=== PATIENT | male | born 1970 | race Caucasian/White ===

== ENCOUNTER 2016-07-27 05:38 | Day surgery (SDC) | payer OTHER ==
[2016-07-27] VITALS (8 sets, daily range): BP systolic 117–127; BP diastolic 69–77; PULSE 66–82; RESP 9–18; O2SAT 94–97
[~2016-07-27] VITALS: Ht 185.4 cm; Wt 108.8 kg
[~2016-07-27 05:38] MED LIST: FLUT16SP NS; LORA10CA PO; RANI150T11 PO
[2016-07-27] MEDS ORDERED: fentaNYL-PF 50 mCg/mL 2 mL Inj ONE (05:39)
[2016-07-27] MEDS ORDERED: MetoCLOpramide 5 mg/mL 2 mL Inj ONE (05:39)
[2016-07-27] MEDS ORDERED: Ondansetron 2 mg/mL 2 mL Inj ONE (05:39)
[2016-07-27] MEDS ORDERED: Dexamethasone 4 mg/mL Inj ONE (05:39)
[2016-07-27] MEDS ORDERED: Propofol 10,000 mCg/mL 20 mL Inj ONE (05:39)
[2016-07-27] MEDS: Lactated Ringer's 1,000 ML IV SCH ×2 (05:45→08:30)
[2016-07-27] MEDS ORDERED: CEPH-512 PO (05:54)
[2016-07-27] MEDS ORDERED: ACET1TAB12 PO (05:54)
[2016-07-27] MEDS ORDERED: CeFAZolin Inj 2 GM in IV Premix 1 EACH IV ONE (06:00)
[2016-07-27] MEDS ORDERED: Lactated Ringer's 500 ML IV PRN (07:28)
[2016-07-27] MEDS ORDERED: Lactated Ringer's 1,000 ML IV SCH (07:28)
--- NOTE | 2016-07-27 07:28 | PCM.HPANE ---
Patient Data Surgeon Admitting Provider: Attending Provider:Rocky Mcgregor MD Primary Care Physician:Geena Other Provider:Alondra [place] Anesthesia Reason for Visit Skin Cancer Ht/WT & BMI Height (Feet): 6 Height (Inches): 1.00 Weight (Kilograms): 108.8 Body Mass Index 31.00 Allergies Uncoded Allergies: ENVIRONMENTAL-SEASONAL (Allergy, Unknown, 07/22/16) Past Anesthesia History Anesthesia History: Denies:: Abnormal Airway, Anesthesia Reactions (no prior surgery), Difficult Intubation, Fam Anesthesia Reaction Diabetes History Hx Diabetes?: No MRSA MRSA: No Medications Hypertension Medication: No Home Meds Incl Beta Serge: No Reported Medications Cephalexin (Keflex)500 Mg [id number] Mg PO BID #40 CAPSULE Ref 0 07/27/16 Acetaminophen/Codeine 300-30mg (Tylenol/Codeine #3)1 Each Tablet1 Tablet PO Q4H PRN Pain Ref 0 07/27/16 Fluticasone Propionate (Fluticasone Propionate Nasal)16 Gm [place].susp1 [place] NS BID #16 GM Ref 0 07/23/16 Loratadine (Claritin)10 Mg [id number] Mg PO DAILY Ref 0 07/23/16 Ranitidine (Zantac)150 Mg [id number] Mg PO DAILY 07/23/16 History History of ENT Problems?: No HEENT History: Denies:: Abnormal Airway Cataracts (hx PRK surgery- bilateral) Difficult Intubation Dysphagia Glaucoma Hearing Problem Sinus Problem TMJ Denture Type: None Teeth Condition: Within Normal Limits Hx of Heart Problems?: No Cardiovascular History: Denies:: AICD Abdominal Aortic Aneurism Cardiac Surgery Chest Pain Edema Heart Murmur Hypertension Irregular Heartbeat Pacemaker Peripheral Vascular Rheumatic Fever Thrombophlebitis Valvular Heart Disease Hx of Respiratory Problem?: Yes Respiratory History: Positive for:: Use of C-PAP Machine (being evaluated to see if he needs still) Denies:: Asthma COPD Emphysema Oxygen Administration Pneumonia Tuberculosis Use of Inhalers / NEBS Hx Neurologic Problems?: No Neurological History: Denies:: Alzheimer's Disease CVA Dementia Dizziness Headaches Multiple Sclerosis Parkinson's Disease Seizures TIA Hx of GI Problems?: Yes Hx of Problems?: No Genitourinary History: Denies:: Kidney Stones Urinary Tract Infection Male Hx: Denies:: Prostate Problems Scrotal Mass Testicular Surgery Skin History: Positive for:: History Skin Disorders? (BCC right shoulder Mohs procedure 07/23/16) Hx Musculoskeletal Problems?: Yes Musculoskeletal History: Positive for:: Back Injury (L3,4,5 bulging disc - sciatica right leg) Denies:: Degenerative Joint Fibromyalgia Joint Replacement Musculoskeletal Trauma Myasthenia Gravis Osteoarthritis Rheumatoid Arthritis Systemic Lupus Hx of Psycho/Social Problems?: No Psycho Social History: Denies:: Anxiety Hx Depression Hx Surgeries?: No Hx Any Other Health Problems?: Yes Other History: Positive for:: Cancer (BCC right shoulder current admission problem) Denies:: Thyroid Disease History Blood Transfusions: Positive for:: Accept Blood Products? Denies:: Blood Transfusions Hx Diabetes: No Hx Alcohol Use: YesAlcoholic Drinks Per Day: one to two drinks a weekHx Substance Use: NoHave You Smoked inLast 12 mo: No Stop/Bang S-Snoring: Do You Snore Loudly: No T-Tired: feel tired, fatigued: No O-Obsered: Observed not breath: No P-Blood Pressure: treated: No B- Body Mass Index > 35 kg/m2: No A- Age over 50: No N- Neck Large Circumference: No G- Gender Male: Yes JERSON Total Score: 1 Risk Assessment Category Category 1A: Patient has history of documented sleep apnea, and HAS NOT received any narcotic, sedative or anesthesia administration during this stay. Category 1B: Patient has history of documented sleep apnea, and HAS received any narcotic , sedative or anesthesia administration during this stay Category 2: Patient has SUSPECTED Obstructive Sleep Apnea, and HAS received any narcotic , sedative or anesthesia administration during this stay. Category 3: Patient has SUSPECTED Obstructive Sleep Apnea and HAS NOT received narcotic, sedative or anesthesia administration during this stay. Category 4: Outpatient in Procedural Areas with known sleep apnea or who screen positive for High Risk via the STOP/BANG questionnaire. Exam Exam Vital Signs Vital Signs Date Time Temp Pulse Resp B/P Pulse Ox O2 Delivery O2 Flow Rate FiO2 07/27/16 06:06 CPAP/BIPAP 07/27/16 06:06 36.0 73 18 125/69 97 Room Air General Appearance: Alert, Oriented X3, Cooperative, No Acute Distress HEENT/AIRWAY: MP 3 Lungs: Clear to Auscultation Heart: Exam Unremarkable Meds/Labs/Diagnostics Admission Meds Current Medications Lactated Ringer's (Lr) 1,000 ml @ 120 mls/hr Q8H20M IV Last administered on t 05:45; Start 07/27/16 at 05:00; Stop 07/27/16 at 13:19 Plan Impression Patient chart reviewed, patient interviewed and anesthestic plan with risks, benefits, and alternatives discussed, and informed consent obtained. ASA Physical Status: ASA2 Mod Systemic Disease Anesthetic Plan: GA Bene/Risks/Altern/Consents: Yes HP Complete Prior to Induction: Yes Zane Gomez MD July 27, 2016 07:28
[2016-07-27] MEDS ORDERED: fentaNYL-PF 50 mCg/mL 2 mL Inj IVPUSH PRN (07:30)
[2016-07-27] MEDS ORDERED: MetoCLOpramide 5 mg/mL 2 mL Inj IVPUSH PRN (07:30)
[2016-07-27] MEDS ORDERED: EPHEDrine Sulfate 50 mg/mL Inj IVPUSH PRN (07:30)
[2016-07-27] MEDS ORDERED: Dexamethasone 4 mg/mL Inj IVPUSH PRN (07:30)
[2016-07-27] MEDS ORDERED: Phenylephrine 10,000 mCg/mL Inj IVPUSH PRN (07:30)
[2016-07-27] MEDS ORDERED: Ondansetron 2 mg/mL 2 mL Inj IVPUSH PRN (07:30)
[2016-07-27] MEDS ORDERED: HYDROmorphone 1 mg/mL Inj IVPUSH PRN (07:30)
[2016-07-27] MEDS ORDERED: Bupivacaine-MPF 0.25% 30 mL Inj INFILTRATE ONE (09:01)
[2016-07-27] MEDS ORDERED: oxyCODONE-Acetamin 5-325 mg Tablet PO PRN (10:40)
--- NOTE | 2016-07-27 11:10 | PCM.ANEP1 ---
Post Anesthesia Phase 1 PACU Phase 1 Assessment Vital Signs Vital Signs Date Time Temp Pulse Resp B/P Pulse Ox O2 Delivery O2 Flow Rate FiO2 07/27/16 10:10 36.8 71 10 122/77 96 Room Air 07/27/16 10:05 36.6 66 9 117/75 96 Room Air 07/27/16 10:00 71 11 119/69 96 Room Air 07/27/16 09:55 82 13 122/72 95 Room Air 07/27/16 09:50 75 9 125/77 94 Room Air 07/27/16 09:45 36.3 74 11 127/69 95 Room Air 07/27/16 06:06 CPAP/BIPAP 07/27/16 06:06 36.0 73 18 125/69 97 Room Air Anesthetic Administered: GA Level of Alertness: Awake, talking CASTAÑEDA's with Equal Strength: Yes Pain: No Nausea or Vomiting: No Cardiovascular Function and Hy: No Oxygen Delivery: Room Air Lungs: Clear to Auscultation Dermatome Level: Full Sensation Complications: No Zane Gomez MD July 27, 2016 11:10
--- NOTE | 2016-07-30 11:34 | OP ---
[address] [address] OPERATIVE REPORT PATIENT: CHRIS SANTOS : 1970 MR#: [id number] ADMIT: 07/27/2016 JOB ID: [id number] DATE OF SURGERY: 07/27/2016 PREOPERATIVE DIAGNOSIS(ES): 1. Right shoulder basal cell carcinoma status post Mohs procedure. 2. Right shoulder defect 6 cm x 7 cm. POSTOPERATIVE DIAGNOSIS(ES): 1. Right shoulder basal cell carcinoma status post Mohs procedure. 2. Right shoulder defect 6 cm x 7 cm. PROCEDURE: Closure of right shoulder defect with local tissue rearrangement (O to T flap) 35 sq cm. SURGEON: Rocky Mcgregor M.D. LIGHTING EQUIPMENT OPERATOR: None. ANESTHESIA: General anesthesia. COMPLICATIONS: None apparent. SPECIMEN: None. DRAINS: None. ESTIMATED BLOOD LOSS: Minimal. INDICATIONS FOR PROCEDURE: This is a 45-year-old male patient with a biopsy-proven large basal cell carcinoma of the right shoulder. The patient underwent Mohs procedure for extirpation of this tumor on July 23, 2016. Patient presents on July 27 for closure of this defect. PROCEDURES AND FINDINGS: The patient was identified in the preoperative area. Surgical site was marked. The patient was then taken back to the operating room and placed supine on the operating table. Appropriate time-outs were taken. General anesthesia was induced smoothly. The patient was then placed into a left decubitus position. Beanbag was inflated. Pressure points were padded. Axillary roll was placed. The patient was then prepped and draped in the usual sterile manner. It was noted that patient has a oblong defect on the right posterior shoulder measuring approximately 6 cm x 7 cm in diameter. Given the orientation an O to T flap was then designed. The long limb of the T oriented in an anterior posterior orientation and the horizontal portion of the T and is on the posterior end of the defect and oriented horizontally. I first elevated the soft tissue around the wound in a mid subcutaneous level. Care was taken to leave a thick adipose flap underneath the skin. This was done for approximately 4-5 cm in each direction around the defect. Incision was then made along the previously designed O to T flap. Once this has been done, the flaps were then advanced into the defect and sutured in place first using several 2-0 Monocryl deep dermal sutures. Intervening 3-0 Monocryl deep dermal sutures were then placed. A layer of 4-0 Monocryl running subcuticular suture was then placed for final epidermal reapproximation. The area of local tissue rearrangement is over 35 sq cm. The patient tolerated the procedure well. Needle count, sponge count, instrument counts were correct at the end of the procedure. The patient was extubated and transported to recovery in stable condition.
== END 2016-07-27 23:59 | disposition home or self-care (01) ==
LOC: SAS 05:38
PROVIDERS: ATTEND Plastic Surgery
DX: Z48.1 Encounter for planned postprocedural wound closure (principal); C44.612 Basal cell carcinoma of skin of right upper limb, including shoulder
CPT/HCPCS: 14301; J0690; J1100; J1885; J2405; J2765; J3010; J7120